=== PATIENT | female | born 1960 | race Caucasian/White ===

== ENCOUNTER 2019-02-20 07:02 | Day surgery (SDC) | payer BC ==
[2019-02-20 07:36] LABS: ADD MAN DIFF? NO
[2019-02-20 07:43] LABS: WHITE BLOOD COUNT 3.6 10^3/ul (4.8-10.8)
[2019-02-20 07:43] LABS: BASOPHILS % 0.3 % (0.0-2.0); EOSINOPHILS # 0.1 10^3/ul (0.0-0.5); EOSINOPHILS % 2.2 % (0.0-7.0); HEMATOCRIT 34.3 % (37.0-47.0); HEMOGLOBIN 11.9 g/dl (12.0-16.0); LYMPHOCYTES # 1.6 10^3/ul (0.8-2.9); MEAN CORPUSCULAR HGB CONC 34.7 g/dl (32.0-37.0); MEAN CORPUSCULAR VOLUME 86.4 fl (82.0-101.0); MEAN PLATELET VOLUME 9.7 fl (7.4-10.4); MONOCYTE # 0.3 10^3/ul (0.3-0.9); MONOCYTES % 6.9 % (0.0-11.0); NEUTROPHIL # 1.7 10^3/ul (1.6-7.5); NEUTROPHILS % 46.3 % (39.0-77.0); PLATELET COUNT 192 10^3/UL (140-415); RED BLOOD COUNT 3.97 10^6/ul (4.20-5.40); RED CELL DISTRIBUTION WIDTH 12.4 % (11.5-14.5)
[2019-02-20 07:55] LABS: INR 0.84; PROTIME 11.6 Sec (11.9-14.9); PT RATIO 0.9
[2019-02-20 07:56] LABS: PARTIAL THROMBOPLASTIN TIME 27.8 Sec (23.0-35.0)
[2019-02-20] MEDS ORDERED: SOD CHLORIDE 0.45% 1,000 ML IV (08:00)
[2019-02-20 08:08] LABS: ANION GAP 7 (5-13); BLOOD UREA NITROGEN 17 mg/dl (7-20); CALCIUM 9.4 mg/dl (8.4-10.2); CARBON DIOXIDE 27 mmol/L (21-31); CHLORIDE 108 mmol/L (97-110); CHOL/HDL RATIO 3.9 RATIO; CHOLESTEROL 261 mg/dl (100-200); Estimated GFR > 60 mL/min (>60); GLUCOSE 100 mg/dl (70-220); HDL CHOLESTEROL 66 mg/dl (35-98); LDL CHOLESTEROL,CALCULATED 164 mg/dl; POTASSIUM 4.2 mmol/L (3.5-5.1); SODIUM 142 mmol/L (135-144); TRIGLYCERIDES 155 mg/dl (0-149)
[2019-02-20 08:29] LABS: HOLD TRANSMISSIONS 1
[2019-02-20] MEDS: DIPHENHYDRAMINE 50 MG CAP PO (08:32)
[2019-02-20] MEDS: DIAZEPAM 5 MG TAB PO (08:32)
[2019-02-20] MEDS: FAMOTIDINE 20 MG TAB PO (08:32)
[2019-02-20] MEDS ORDERED: FENTAnyl 50 MCG/ML VIAL (09:04)
[2019-02-20] MEDS ORDERED: IODIXANOL LOCM 100 ML BTL (09:04)
[2019-02-20] MEDS ORDERED: NITROGLYCERIN (IC) 100 MCG/ML INJ (09:04)
[2019-02-20] MEDS ORDERED: VERAPAMIL 5 MG INJ (09:04)
[2019-02-20] MEDS ORDERED: LIDOCAINE 1% (MDV) 20 ML INJ (09:04)
[2019-02-20] MEDS ORDERED: MIDAZOLAM 1 MG/ML 2 ML INJ (09:04)
[2019-02-20] MEDS ORDERED: HEPARIN 1000 UNITS/ML 10 ML INJ (09:05)
[2019-02-20] MEDS ORDERED: SOD CHLORIDE 0.9% 1,000 ML IV (10:47)
[2019-02-20] MEDS ORDERED: AL HYDROX/MG HYDROX/SIMETH 30 ML CUP PO (11:00)
[2019-02-20] MEDS ORDERED: morphine 2 MG INJ IV (11:00)
[2019-02-20] MEDS ORDERED: ACETAMINOPHEN 325 MG TAB PO (11:00)
[2019-02-20] MEDS ORDERED: ONDANSETRON 4 MG INJ IV (11:00)
== END 2019-02-20 17:30 | disposition home or self-care (01) ==
LOC: SDS 07:02
DX: I25.10 Atherosclerotic heart disease of native coronary artery without angina pectoris (principal); I10 Essential (primary) hypertension; E78.5 Hyperlipidemia, unspecified
CPT/HCPCS: 71045; 80048; 80061; 85025; 85610; 85730; 93005; 93458